=== PATIENT | female | born 1965 | race African-American/Black ===

== ENCOUNTER 2018-09-16 16:57 | Emergency (ER) | payer MEDICAID ==
[~2018-09-16] VITALS: Ht 170.2 cm; Wt 77.0 kg
[2018-09-16 19:10] LABS: HEMATOCRIT. 32.2 % (36.0-48.0); HEMOGLOBIN. 10.5 g/dL (12.0-16.0); MEAN CORPUSCULAR VOLUME 85.9 fL (81.0-99.0); MEAN PLATELET VOLUME 8.9 fl (7.4-10.4); PLATELET 236 x1000/uL (130-400); RED BLOOD CELL COUNT 3.75 mill/uL (4.2-5.4); RED CELL DISTRIBUTION WIDTH 14.9 % (11.6-14.6)
[2018-09-16 19:15] LABS: CHLORIDE 102 mEq/L (98-107)
[2018-09-16 19:35] LABS: PLATELET ESTIMATE NORMAL
[2018-09-16 20:03] LABS: CLARITY URINE CLEAR (CLEAR); COLOR URINE DARK YELLOW (YELLOW); KETONES URINE TRACE (NEGATIVE); LEUKOCYTE ESTERASE URINE 1+ (NEGATIVE); NITRITE URINE NEGATIVE (NEGATIVE); OCCULT BLOOD URINE NEGATIVE (NEGATIVE); PH URINE 5.5 (4.5-8.0); PROTEIN URINE NEGATIVE (NEGATIVE); SPECIFIC GRAVITY URINE 1.023 (1.005-1.030)
[2018-09-16] MEDS ORDERED: AMOXICILLIN/POTASSIUM CLAVULANATE 875/125MG TAB PO ONE (20:30)
[2018-09-16 21:28] VITALS: BP 107/68
== END 2018-09-16 21:51 | disposition home or self-care (01) ==
LOC: ER 16:57
DX: J18.9 Pneumonia, unspecified organism (principal); I10 Essential (primary) hypertension; J45.909 Unspecified asthma, uncomplicated; Z87.891 Personal history of nicotine dependence
CPT/HCPCS: 36415; 71045; 80053; 81003; 85025; 87804; 99284; Z7610